=== PATIENT | female | born 1960 | race Caucasian/White ===

== ENCOUNTER → 2017-02-06 | Outpatient (CLI) | payer OTHER ==
--- NOTE | 2017-02-06 19:26 | REP ---
Maxillofacial CT study without contrast: History: Chronic pansinusitis. Comparison study August 19, 2013. CT findings: There is moderate mucosal thickening affecting the right maxillary sinus. This is a new finding. There appears to be a patent nasoantral window, which is a new finding from prior study. The ostiomeatal complex on the left is widely patent. On the right, the OMC is obscured by mucosal thickening. There is mild mucosal thickening in one of the right posterior ethmoid air cells. There is nearly complete opacification of the right sphenoid sinus. This is more pronounced than on the prior study. Paranasal sinuses are otherwise clear. Mastoid aeration is normal and symmetric. No bony erosive changes seen. No intraorbital abnormality is seen. Visualized intracranial structures are unremarkable. Bony nasal septum is in the midline. Nasal turbinate soft tissues remain unremarkable. Impression: polysinusitis changes most prominently affecting the right sphenoid, right maxillary, and right ethmoid air cells as above. Signed by Jeff Bangura MD 02/06/2017 07:58 P
== END ==
LOC: M RAD 17:00
PROVIDERS: ATTEND Otolaryngology
DX: J32.4 Chronic pansinusitis (principal)

== ENCOUNTER → 2017-02-15 | Outpatient (CLI) | payer OTHER ==
--- NOTE | 2017-02-15 19:04 | REP ---
BILATERAL MAMMOGRAM: Bilateral mammography performed in the MLO and CC projections and compared to prior study [facility] 06/05/2014. Both breasts demonstrate a moderate degree of heterogeneously dense fibroglandular tissue, limiting the sensitivity of the mammogram. Nodular opacity laterally on the right CC view is stable and another smaller nodular density medially is stable. However, posteriorly on the right CC view an oval nodular density is visualized, which is not definitely seen on the prior study. This measures about 1 cm in diameter. This is not definitely seen on the MLO view. I see no other evidence of mass or clustered microcalcifications. IMPRESSION: ACR 0 incomplete. Possible new 1 cm nodular density posteriorly and laterally in the right breast seen only on the CC view. Recommend spot compression views and ultrasound to further evaluate. This mammogram was interpreted with the aid of an FDA-approved computer-aided detection system. The patient states she/he had a clinical breast exam in 01/2017. The patient letter being requested is M0. Signed by Sea Conley MD 02/16/2017 08:28 P
== END ==
LOC: M RAD 09:20
DX: Z12.31 Encounter for screening mammogram for malignant neoplasm of breast (principal); R92.8 Other abnormal and inconclusive findings on diagnostic imaging of breast

== ENCOUNTER → 2017-02-22 | Outpatient (CLI) | payer OTHER ==
--- NOTE | 2017-02-22 15:58 | REP ---
MAXILLOFACIAL CT WITHOUT CONTRAST: HISTORY: Chronic sinusitis. COMPARISON: 02/06/2017 The patient is status-post partial right uncinectomy. Minimal mucosal thickening is present in the ethmoid and right maxillary sinuses. The mucosal thickening is slightly decreased in the right maxillary sinus. Mucosal thickening is present in the right sphenoid sinus. There is almost complete opacification of the right sphenoid sinus that is slightly decreased compared to the previous study. The frontal left maxillary and sphenoid sinuses are clear. Mucosal thickening involves the right osteomeatal unit. The left osteomeatal unit is patent. The middle and inferior nasal turbinates are partially paradoxical. There is steve bullosa of the middle nasal turbinates. There is minimal deviation of the nasal septum to the right. The cribriform plate, medial ritter of the orbits and optic canals are intact. The carotid canals form a segment of the posterior lateral ritter of the sphenoid sinus. IMPRESSION: 1. The patient is status-post partial right uncinectomy. 2. Sinus mucosal thickening as described above. Signed by Jose David Byers MD 02/22/2017 03:59 P
== END ==
LOC: M RAD 14:59
PROVIDERS: ATTEND Otolaryngology
DX: J32.4 Chronic pansinusitis (principal)

== ENCOUNTER → 2017-03-07 | Outpatient (CLI) | payer OTHER | LOC: M RAD 13:13 | DX: N63.0 Unspecified lump in unspecified breast (principal) ==

== ENCOUNTER → 2017-03-18 | Outpatient (CLI) | payer OTHER | LOC: M EKG 11:09 | DX: Z01.810 Encounter for preprocedural cardiovascular examination (principal) | CPT/HCPCS: 93005 ==

== ENCOUNTER 2017-04-12 10:05 | Day surgery (SDC) | payer OTHER ==
[2017-04-12] MEDS ORDERED: NS 1,000 ML IV (10:45)
[2017-04-12] MEDS ORDERED: LIDOCAINE 2% INJ 100 MG/5 ML SDV (FOR ANES.) As Ordered (11:06)
[2017-04-12] MEDS ORDERED: PROPOFOL 200 MG/20 ML VIAL As Ordered ×2 (11:06)
== END 2017-04-12 12:00 | disposition home or self-care (01) ==
LOC: M OPP 10:05
DX: Z12.11 Encounter for screening for malignant neoplasm of colon (principal); D12.5 Benign neoplasm of sigmoid colon; K62.1 Rectal polyp; K64.0 First degree hemorrhoids; K57.30 Diverticulosis of large intestine without perforation or abscess without bleeding; I10 Essential (primary) hypertension; E78.5 Hyperlipidemia, unspecified; E03.9 Hypothyroidism, unspecified; M54.2 Cervicalgia; Z78.0 Asymptomatic menopausal state; R06.83 Snoring; J32.9 Chronic sinusitis, unspecified; Z88.8 Allergy status to other drugs, medicaments and biological substances; Z88.1 Allergy status to other antibiotic agents; Z79.899 Other long term (current) drug therapy
CPT/HCPCS: 45385